=== PATIENT | female | born 1975 | race Caucasian/White ===

== ENCOUNTER 2024-06-09 16:37 | Inpatient (IN) | payer BC, SELFPAY ==
[2024-06-09] VITALS (17 sets, daily range): BP systolic 104–156; BP diastolic 71–93; BMI 37.9
[2024-06-09 03:29] LABS: Urine Albumin Negative (Neg - Trace); Urine Bilirubin 1+ (Negative); Urine Character Clear (Clear); Urine Color Yellow; Urine Glucose Negative (Negative); Urine Ketone Negative (Negative); Urine Leukocyte 1+ (Negative); Urine Nitrite Negative (Negative); Urine Occult Blood 2+ (Negative); Urine Specific Gravity 1.025 (<1.030); Urine Urobilinogen 2+ (Neg - 1+)
[2024-06-09 03:40] LABS: % Basophils 0.7 % (0-2); % Eosinophils 5.4 % (0-6); % Immature Granulocytes 0.2 % (0-0.5); % Lymphocytes 27.9 % (20.5-51.1); % Monocytes 9.5 % (1.7-9.3); % Neutrophils 56.3 % (42.2-75.2); Absolute Eosinophils 0.3 10^3/uL (0-0.7); Absolute Lymphocytes 1.6 10^3/uL (1.2-3.4); Absolute Monocytes 0.5 10^3/uL (0.1-0.6); Absolute Neutrophils 3.1 10^3/uL (1.4-6.5); Hematocrit 39.7 % (37.0-47.0); Hemoglobin 13.5 g/dL (12.0-16.0); Mean Corpuscular Hgb 29.2 pg (27.0-31.0); Mean Corpuscular Volume 85.9 fL (81.0-99.0); Mean Platelet Volume 10.9 fL (7.4-10.4); Nucleated Red Blood Cells % 0 %; Platelet Count 341 10^3/uL (130-400); Red Blood Cell Count 4.62 10^6/uL (4.20-5.40); Red Cell Dist. Width 12.9 % (11.5-14.5); White Blood Cell Count 5.6 10^3/uL (4.8-10.8)
[2024-06-09 03:42] LABS: ALT (SGPT) 483 U/L (0-35); AST (SGOT) 599 U/L (14-36); Albumin 4.1 g/dl (3.5-5.0); Alkaline Phosphatase 162 U/L (38-126); Blood Urea Nitrogen 11 mg/dl (7-17); Calcium 9.6 mg/dl (8.4-10.2); Carbon Dioxide 26 mmol/L (22-30); Chloride 105 mmol/L (98-107); Glucose 109 mg/dl (70-99); Lipase 202 U/L (23-300); Potassium 4.1 mmol/L (3.5-5.1); Sodium 137 mmol/L (135-145); Total Protein 6.9 g/dl (6.3-8.2); eGFR > 60.00
[2024-06-09 04:02] LABS: Urine Bacteria Moderate (Negative); Urine Squamous Cell >30 /LPF (Few)
[2024-06-09] MEDS: NSS 1000 IV ×2 (04:24→17:01)
[2024-06-09] MEDS: ZOFRAN 4 MG IV ×3 (04:25→16:10)
[2024-06-09] MEDS: PROTONIX IV 40 MG IV (04:26)
[2024-06-09] MEDS: DILAUDID 0.5 MG IV ×3 (04:27→10:39)
--- NOTE | 2024-06-09 06:03 | ED.GENMED ---
History of Present Illness
General
Chief Complaint: Abdominal Pain
Source: patient
Exam Limitations: none
Time Seen by Provider: 06/09/24 05:18
Nursing documentation reviewed up to this point in time: agreed with
History of Present Illness
History of Present Illness:
This is a 49-year-old woman with history of well-controlled asthma, presents with 3 to 4-week history of intermittent upper abdominal pain primarily right upper quadrant that seems worse at nighttime, worse after eating fatty meals. Right upper
quadrant pain has been consistent since yesterday afternoon after eating a small piece of sausage and much worse tonight accompanied with nausea and vomiting. She denies fevers or chills. No chest pain or cough no shortness of breath.
She denies risk of , is perimenopausal and was recently started on estrogen/progesterone supplementation.
Patient was in moderate distress initially upon arrival to the ED. Was given IV Dilaudid, IV Zofran, IV Protonix and IV fluids. Pain is now markedly improved and nausea has resolved.
She denies alcohol use. Non-smoker.
Past History
Past History
ED Past Medical History: Asthma
ED Past Surgical History: Tonsilectomy
Social History
Tobacco: Former smoker (quit 10 years ago)
Alcohol: None
Drug: None
Personal:
Living: with family
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
Family History
Family History: Other (Noncontributory)
Phy Exam
Physical Exam
Physical Exam:
GENERAL: 49-year-old woman appears her stated age, awake and alert, pleasant, appears in no acute distress.
EYE: anicteric
NECK: Supple, nontender, no meningismus, no significant adenopathy.
ENT: oral mucosa is moist. No rhinorrhea.
CARDIAC: Regular rate and rhythm. no murmur.
LUNGS: Clear breath sounds bilaterally, no acute respiratory distress, no wheezes/rales/rhonchi
ABDOMEN: Soft, nondistended, moderate tenderness right upper quadrant as well as mild tenderness epigastric region, 9 no r/g, no cvat. normoactive BS.
NEUROLOGICAL: Alert and oriented x3, no focal neuro deficits.
SKIN: Warm and dry, normal color, skin intact. No rash.
MUSCULOSKELETAL: No C/C/E. peripheral pulses are full and equal b/l. No palpable tenderness.
PSYCH: Normal and appropriate interaction.
Course
Orders/Labs/Results
Orders:
Orders
06/09/24 03:08
IV Insert/Care/Rem.- Treatment PRN
06/09/24 03:15
Complete Blood Count/With Diff Urgent
Comprehensive Metabolic Panel Urgent
Lipase Urgent
06/09/24 03:17
Urinalysis Reflex To Culture Urgent
Date Specimen was Collected: 06/09/24
Time Specimen was Collected: 03:08
Urine Microscopic Reflex Cult Urgent
Urine Culture Urgent
ÁNGEL Source: U
Specimen Description:
Date Specimen was Collected: 06/09/24
Time Specimen was Collected: 03:08
06/09/24 04:17
HYDROmorphone [Dilaudid] 0.5 mg .ROUTE .STK-MED ONE
Ondansetron Injectable [Zofran] 4 mg .ROUTE .STK-MED ONE
Pantoprazole [Protonix IV] 40 mg .ROUTE .STK-MED ONE
06/09/24 04:24
0.9% Sodium Chloride 1000 ml [Nss] 1,000 ml IV BOLUS
06/09/24 04:25
Ondansetron Injectable [Zofran] 4 mg IV NOW STA
Pantoprazole [Protonix IV] 40 mg IV NOW STA
06/09/24 04:26
HYDROmorphone [Dilaudid] 0.5 mg IV NOW STA
06/09/24 04:28
US Abdomen Complete/Upper Urgent
Comment:
Reason For Exam: right upper quad pain
Abnormal Lab Results
06/09/24 06/09/24
03:15 03:17
MPV 10.9 H fL
(7.4-10.4)
Monocytes % 9.5 H %
(1.7-9.3)
Glucose 109 H mg/dl
(70-99)
Total Bilirubin 2.0 H mg/dl
(0.2-1.3)
AST 599 H* U/L
(14-36)
ALT 483 H U/L
(0-35)
Alkaline Phosphatase 162 H U/L
(38-126)
Ur Occult Blood Reflex 2+ A
(Negative)
Urine Bilirubin 1+ A
(Negative)
Urine Urobilinogen 2+ A
(Neg - 1+)
Leukocyte Esterase Rfl 1+ A
(Negative)
Urine RBC 3-6 A /HPF
(0-2)
Urine Bacteria (Reflex) Moderate A
(Negative)
06/09/24 03:15
06/09/24 03:15
Vital Signs
Initial and Last Documented VS:
Initial Vital Signs
Temp Pulse Resp BP Pulse Ox
97.6 F 72 20 137/91 99
06/09/24 03:02 06/09/24 03:02 06/09/24 03:02 06/09/24 03:02 06/09/24 03:02
Last Documented Vital Signs
Temp Pulse Resp BP Pulse Ox
97.6 F 72 20 137/91 98
06/09/24 03:02 06/09/24 03:02 06/09/24 03:02 06/09/24 03:02 06/09/24 04:12
MDM/Problems Addressed
Differential Diagnosis Includes:
Significant concern for acute biliary colic/acute cholecystitis. Other consideration is pancreatitis, gastritis. Small bowel obstruction is much less likely.
Labs are remarkable for significantly elevated LFTs in the 400s to near 600 with elevated alkaline phosphatase and total bili of 2.0. Normal lipase. Normal CBC.
Abdominal ultrasound shows gallstones in the gallbladder but no evidence of gallbladder wall thickening and normal common bile duct of 4 mm.
Patient is much more comfortable but continues with tenderness right upper quadrant and with elevated LFTs, gallstones significant turn for acute cholecystitis.
General surgery consulted, case discussed. Evaluated bedside.
Chronic conditions affecting care: Asthma (Well-controlled without recent flare)
*Radiology
Radiology exam reviewed: radiology read reviewed
*Pulse Oximetry
Patient hypoxic: no
*Critical Care Note
Total Time (30-74mins, 75-104mins- exclusive of procedures): Not Applicable
ED Attending Note
-
Portions of this chart may have been created with voice recognition software.� Occasional wrong word or��sound alike� substitutions may have occurred due to the inherent limitations of voice recognition software.
Discharge Plan
Departure
Admit to doctor: Tony
Presentation/result/management discussed w/ accepting MD/DO: General surgery
Discharge Problem:
Acute calculous cholecystitis
Prescriptions:
No Action
albuterol sulfate 90 MCG/PUFF HFA aerosol inhaler
1 puff inhalation PRN PRN (Reason: sob)
fluticasone furoate-vilanterol [Breo Ellipta] 1 EACH blister with device
1 ea inhalation DAILY
Patient Comments:
unsure of strength
ibuprofen 600 MG tablet
600 mg PO Q6H PRN (Reason: discomfort)
Referrals:
Tiffany Dalton CRNP [Family Provider] -
Interventions
Interventions:
*Risk Screen - Suicide Last Done: 06/09/24 03:02
*General Assessment Last Done: 06/09/24 03:02
*Neglect/Abuse Screening Last Done: 06/09/24 03:02
*ED- Fall Risk Assessment Last Done: 06/09/24 03:02
*ED COVID-19 Vaccine History Last Done: 06/09/24 03:02
HV-Kpftee-Suehrfwujw Assessment Last Done: 06/09/24 04:12
Discharge Date and Time
Print Language: PAKISTANI
--- NOTE | 2024-06-09 09:05 | HPS.HSE ---
Addendum entered and electronically signed by Sebastián Jimenez MD 06/09/24 15:48:
I saw and examined the patient.
The Fullerette's note was reviewed and I agree with the note.
Comment: RUQ ttp, pain improving but she is very concerned about eating and having another episode of pain and prefers to stay for CCY with cholangiogram. Risks, benefits, complications and alternatives were discussed in detail including but not
limited to pain, infection, bleeding, injury to intra-abdominal structures. bile duct stones requiring ERCP, conversion to open procedure and she freely signed the consen
Original Note:
Family Physician
-
Family Physician: MAGY Saeed
Chief Complaint
-
RUQ pain
History of Present Illness
49 yo female with a h/o asthma presenting through the ED with RUQ pain with indigestion intermittently over the last 3-4 weeks, usually at night. She initially attributed the discomfort to the new hormone replacement therapy she had started but
notes it did worsen with fatty foods. Last night, she was at a wedding and had some sausage with subsequent onset of more severe RUQ pain with nausea and vomiting. Her symptoms persisted causing her to present through the ED for evaluation. She
denies fevers or chills. She feels sore to the RUQ but feels better after receiving analgesics in the ED.
Medical History
Past Medical History
Past Medical History: Reports Asthma
Past Surgical History: Reports Tonsilectomy and Other (Endoscopy x2 for food impaction)
Social History
Tobacco: Former Smoker
Living: With Family (has 6 children)
Employment: Employed (commercial attorney)
Family History
Family History: Not pertinent
Allergies / Home Medications
Allergies reflects when Allergies were last updated in [facility].
Home Medications with original date entered in [facility]
Allergy/Medication List:
Patient Allergies
Allergy/AdvReac Type Severity Reaction Status Date / Time
pine nut Allergy Unknown Verified 06/09/24 03:01
pseudoephedrine HCl Allergy Unknown Verified 06/09/24 03:01
[From [facility]]
�Medication �Instructions �Recorded �Confirmed �Type
albuterol sulfate 90 mcg/actuation 1 puff inhalation PRN PRN sob 05/10/10 06/09/24 History
aerosol inhaler
fluticasone furoate 100 1 ea inhalation DAILY 11/11/17 06/09/24 History
mcg-vilanterol 25 mcg/dose
inhalation powder (Breo Ellipta)
ibuprofen 600 mg tablet 600 mg PO Q6H PRN discomfort 11/11/17 06/09/24 History
Additionally reports she is on progesterone/estrogen, unknown dosage
Review of Systems
-
History Source: Patient and Family
A 12 point ROS was completed and negative except as noted: Yes
Physical Exam
Vital Signs
Vital Signs
Temp Pulse Resp BP Pulse Ox
97.6 F 72 20 120/78 99
06/09/24 03:02 06/09/24 03:02 06/09/24 03:02 06/09/24 06:19 06/09/24 06:45
Physical Exam
General: Well Developed and Well Nourished
HEENT: Moist mucous membranes
Respiratory: Non Labored Respirations
GI: Soft, Non Distended and Tender (minimal to RUQ)
Skin: Warm and Dry
Neuro: Awake, Alert and AO x 3
Psych: Calm
Laboratory Results
-
06/09/24 03:15
06/09/24 03:15
Laboratory Results
Total Bilirubin 2.0 mg/dl (0.2-1.3) H 06/09/24 03:15
AST 599 U/L (14-36) H* 06/09/24 03:15
ALT 483 U/L (0-35) H 06/09/24 03:15
Alkaline Phosphatase 162 U/L (38-126) H 06/09/24 03:15
Lipase 202 U/L (23-300) 06/09/24 03:15
Data Reviewed
-
Ultrasound: Image Personally Visualized and interpreted, Report Reviewed by me, Discussed with Physician, Discussed with Patient and Discussed with Family
Lab Data: Labs Reviewed by me, Discussed with Physician, Discussed with Patient and Discussed with Family
Impression/Plan
-
IMPRESSION: 49 yo female with h/o asthma presenting with recurrent biliary colic over the past month with more persistent and severe pain last night after a high fat meal with associated nausea. Mildly elevated LFT's, no leukocytosis. AFVSS. US with
cholelithiasis, no evidence of cholecystitis.
PLAN:
NPO for OR today for lap cholecystectomy with IOC
Cefotetan cable television installer to the OR
Analgesics prn
--- NOTE | 2024-06-09 12:30 | PHANOTE ---
06/09/24 med rec tech: patient says that she took 1/4 of one of her mother's THC gummies last night (06/08/24). she does not know the strength.
--- NOTE | 2024-06-09 15:48 | W.IMMPOSTOP ---
Surgical Immed Post Op Note
-
Primary Surgeon: Tony
Assisting: Preet SULLIVAN
Pre-op Diagnosis: Biliary colic
Post-op Diagnosis: Chronic calculous cholecystitis and choledocholithiasis
Procedure Performed: Robot assisted laparoscopic cholecystectomy with cholangiogram
Anesthesia Type: GETA
Specimen / Cultures: Gallbladder
Estimated Blood Loss: 15cc
Complications: None immediate
Operative Findings: Distended gallbladder encased in fat, dilated cystic duct, cholangiogram with good flow into duodenum, opacification of bile ducts, 2-3 filling defects in common duct noted
--- NOTE | 2024-06-09 15:50 | OR.RPT ---
Operative Report
Operative Report
Primary Surgeon: Tony
Assisting: Preet SULLIVAN
Pre-op Diagnosis: Biliary colic
Post-op Diagnosis: Chronic calculous cholecystitis and choledocholithiasis
Procedure Performed: Robot assisted laparoscopic cholecystectomy with cholangiogram
Anesthesia Type: GETA
Specimen / Cultures: Gallbladder
Estimated Blood Loss: 15cc
Complications: None immediate
Operative Findings: Distended gallbladder encased in fat, dilated cystic duct, cholangiogram with good flow into duodenum, opacification of bile ducts, 2-3 filling defects in common duct noted
Date of Surgery:� 06/09/24
Indications: This 49F developed symptomatic cholelithiasis. Lab work showed elevated liver enzymes. Imaging showed no ductal dilation. Laparoscopic cholecystectomy with robotic assist and cholangiogram was elected.
Description of procedure: The patient was placed on the operating table in the supine position. General anesthesia was induced. A time-out was completed verifying correct patient, procedure, site, positioning, and special equipment prior to
beginning this procedure. An orogastric tube was placed. The abdomen was prepped and draped in the usual sterile fashion. A stab incision was made in left upper quadrant and the Veress needle was inserted. Proper position was confirmed by aspiration
and saline meniscus test. The abdomen was insufflated with carbon dioxide to a pressure of 12mmHg. The patient tolerated insufflation well.
A 8mm trocar was then inserted above the umbilicus through the existing hernia defect. The laparoscope was inserted and the abdomen inspected. No injuries from initial trocar placement or Veress needle insertion were noted. Additional 8mm trocars
were then inserted in the following locations: two in the right lower quadrant and to the left of the umbilicus and just above. The abdomen was inspected and no abnormalities were found. Filmy omental adhesions to the gallbladder were taken down
with electrocautery. The table was placed in the reverse Trendelenburg position with the right side up. The gallbladder was encased in fat and had dense adhesions to omentum. The dome of the gallbladder was grasped with an atraumatic grasper and
retracted over the dome of the liver. The fatty attachments were taken down with electrocautery. The infundibulum was then grasped with an atraumatic grasper and retracted toward the right lower quadrant. This maneuver exposed Calot�s triangle. The
peritoneum overlying the gallbladder infundibulum was then incised and the cystic duct and cystic artery identified and circumferentially dissected so that a clear view of the liver was achieved through a window between the cystic duct an cystic
artery. At this time, the only two structures going into the gallbladder were the cystic artery and cystic duct.
A nolberto was made in the cystic duct and a cholangiogram catheter was threaded through the abdominal wall and into the cystic duct and secured with a 2-0 silk tie. A cholangiogram was obtained that showed good flow of contrast into duodenum,
opacification of bile ducts, 2-3 filling defects in common duct. The cholangiogram catheter was removed.
The cystic duct was then doubly clipped and divided. The cystic artery was controlled with bipolar and divided. The gallbladder was then dissected from its peritoneal attachments by electrocautery. The gallbladder was removed using an endoscopic
retrieval bag placed through the umbilical port. The gallbladder was passed off the table as a specimen. The gallbladder fossa was closely inspected. There was no evidence of bleeding from the gallbladder fossa or cystic artery or leakage of the
bile from the cystic duct stump. The fossa was irrigated thoroughly with warm sterile saline. The umbilical trocar site was closed at the fascial level with 2-0 PDS. Secondary trocars were removed under direct vision and noted to be hemostatic. The
abdomen was allowed to collapse. The skin was closed with subcuticular sutures of 4-0 monocryl and topical skin adhesive. The orogastric tube was removed.
The patient tolerated the procedure well and was taken to the postanesthesia care unit in stable condition.
[2024-06-09] MEDS: DEMEROL 12.5 MG IV (16:19)
--- NOTE | 2024-06-09 17:19 | PTCARENOTE ---
Received patient from PACU via bed around 1705 in stable condition. Patient drowsy but arousable. Patient complaining of pain 12/28. Patient not due for any pain medication at this time as she had just received medication in PACU. Ice placed on
abdomen. Explained to patient about gas pains and the importance of ambulating. 5 lap sites to abdomen with surgical adhesive CDI, IMPROVEMENT LEADER. Patient oriented to room. at bedside. Call atkinson in reach.
[2024-06-09] MEDS: DILAUDID 1 MG IV (18:36)
[2024-06-09] MEDS: TORADOL 15 MG IV (20:11)
[2024-06-09] MEDS: ROXICODONE 5 MG PO (21:41)
[2024-06-10] MEDS: ROXICODONE 5 MG PO ×2 (04:50→09:11)
[2024-06-10] MEDS: NORMOSOL-R/PLASMALYTE-A 1000 IV (04:51)
[2024-06-10] MEDS: NSS 1000 IV ×2 (05:00→17:45)
[2024-06-10] MEDS: ProAIR HFA INHALER 1 PUFF INH (05:37)
[2024-06-10 06:57] VITALS: BP 127/70
[2024-06-10 08:32] LABS: % Basophils 0.2 % (0-2); % Eosinophils 0.1 % (0-6); % Immature Granulocytes 0.4 % (0-0.5); % Lymphocytes 9.5 % (20.5-51.1); % Monocytes 5.7 % (1.7-9.3); % Neutrophils 84.1 % (42.2-75.2); Absolute Immature Granulocytes 0.1 10^3/uL (0-0.05); Absolute Lymphocytes 1.3 10^3/uL (1.2-3.4); Absolute Monocytes 0.8 10^3/uL (0.1-0.6); Absolute Neutrophils 11.3 10^3/uL (1.4-6.5); Hematocrit 40.8 % (37.0-47.0); Hemoglobin 13.7 g/dL (12.0-16.0); Mean Corp Hgb Conc. 33.6 g/dL (33.0-37.0); Mean Corpuscular Hgb 29.8 pg (27.0-31.0); Mean Corpuscular Volume 88.7 fL (81.0-99.0); Mean Platelet Volume 10.7 fL (7.4-10.4); Nucleated Red Blood Cells % 0 %; Platelet Count 350 10^3/uL (130-400); Red Cell Dist. Width 13.1 % (11.5-14.5); White Blood Cell Count 13.4 10^3/uL (4.8-10.8)
[2024-06-10] MEDS: TORADOL 15 MG IV (08:37)
[2024-06-10 08:52] LABS: ALT (SGPT) 718 U/L (0-35); AST (SGOT) 313 U/L (14-36); Albumin 4.6 g/dl (3.5-5.0); Alkaline Phosphatase 226 U/L (38-126); Direct Bilirubin 0.6 mg/dl (0.0-0.4); Total Bilirubin 1.4 mg/dl (0.2-1.3); Total Protein 7.2 g/dl (6.3-8.2)
--- NOTE | 2024-06-10 10:34 | W.PN.GS2 ---
Addendum entered and electronically signed by Sebastián Jimenez MD 06/10/24 14:38:
I saw and examined the patient.
The Shipbuilding Draftsperson's note was reviewed and I agree with the note.
Comment: Improved. Still with right shoulder discomfort and abd pain, unclear if pain from incisions or choledocholithiasis. Per GI plan for ERCP tomorrow. CLD for today. NPO@MN
Original Note:
Today's Communication / Plan
-
NPO after MN
Assessment / Plan
-
49 yo female presenting with biliary colic, symptomatic chronic cholecystitis now POD #1 RAL cholecystectomy with IOC demonstrating choledocholithiasis
AFVSS
Mild leukocytosis, likely reactive
Bilirubin trending down. Transaminitis present.
--Diet as tolerated today
--GI consult for ERCP, will make NPO after MN
--Analgesics/antiemetics prn
--SCDS for VTE ppx
Subjective Data
-
Date of Service: June 10, 2024
Patient seen and examined at bedside. Denies n/v. Some pain after eating to the epigastric area. Sore at port sites. Passing flatus.
Objective Data
-
Intake and Output
06/09/24 06/10/24 06/11/24
06:59 06:59 06:59
Intake Total 2079 / 2079
Output Total 750 / 750
Balance 1330 / 1330
Intake:
Oral fluids 1020 / 1020
IV fluids (Total) 1060 / 1060
Normosol 100 / 100
Output:
Urine, Voided 750 / 750
Vital Signs
Temp Pulse Resp BP Pulse Ox
97.4 F 77 16 127/70 98
06/10/24 06:57 06/10/24 06:57 06/10/24 06:57 06/10/24 06:57 06/10/24 06:57
Lab Results
06/10/24 08:20
06/09/24 03:15
Calcium 9.6 mg/dl (8.4-10.2) 06/09/24 03:15
Total Bilirubin 1.4 mg/dl (0.2-1.3) H 06/10/24 08:20
Direct Bilirubin 0.6 mg/dl (0.0-0.4) H 06/10/24 08:20
AST 313 U/L (14-36) H 06/10/24 08:20
ALT 718 U/L (0-35) H* 06/10/24 08:20
Alkaline Phosphatase 226 U/L (38-126) H 06/10/24 08:20
Total Protein 7.2 g/dl (6.3-8.2) 06/10/24 08:20
Albumin 4.6 g/dl (3.5-5.0) 06/10/24 08:20
Physical Exam
-
NAD
ABD soft, expected incisional tenderness, nd
Incisions well approximated with intact glue
[2024-06-10 10:56] VITALS: BP 112/62
[2024-06-10] MEDS: DILAUDID 1 MG IV ×3 (12:33→19:13)
--- NOTE | 2024-06-10 12:59 | CM ---
Initial assessment completed
Pt lives with her and daughter in a 2 story home; 3 [address], 10 steps to 2nd fl
Independent, employed, drives
DME - none
Denies past SNF/HH
Has ride at discharge
PCP - Tiffany Bruner
Pharm - [facility]
Plan - anticipate home no needs
[2024-06-10] MEDS: TORADOL 30 MG IV (13:47)
[2024-06-10] MEDS: TYLENOL 1000 MG PO (13:48)
--- NOTE | 2024-06-10 14:05 | CON.GI ---
Consultation
-
Date/Time Consultation Requested: 06/10/2024
Date/Time Consultation Performed: 06/10/2024
Requesting Provider: Dr. Jimenez
Performing Provider: Dr. Dumont
Reason for Consultation: Choledocholithiasis
Medical History
Chief Complaint / HPI
Chief Complaint: Choledocholithiasis
History of Present Illness:
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
Tuesday night and came to the emergency room. Abdominal ultrasound shows cholelithiasis, LFTs including total bilirubin, AST, ALT and alkaline phosphatase were all elevated. Patient had laparoscopic cholecystectomy and intraoperative cholangiogram
showed possible stones in the bile ducts and GI consult was called in. Total bilirubin is trending down slightly, AST is coming down but ALT did go up to the 700 range and alkaline phosphatase in the 200 range. No prior elevated LFTs.
Currently patient does report some discomfort in the upper abdomen in the post cholecystectomy site. No nausea or vomiting. No heartburn, she does have history of eosinophilic esophagitis and has trouble swallowing solid food on occasion, she was
supposed to be on gluten-free and dairy free diet but has not been compliant lately. Her last upper endoscopy in 2019 did show evidence of eosinophilic esophagitis when she had food impaction, biopsies showed up to 72 eosinophils per high-power
field. Colonoscopy in 2019 showed some mild erythema in the colon but biopsies unremarkable.
No family history of colon cancer.
Past Medical History
Past Medical History: Asthma and Other (Eosinophilic esophagitis)
Past Surgical History: Other (Laparoscopic cholecystectomy)
Social History
Tobacco: Non-Smoker
Alcohol: Occasional
Family History
Family History: Reviewed & Not Pertinent
Allergies / Home Medications
Allergy/AdvReac Type Severity Reaction Status Date / Time
pine nut Allergy Unknown Verified 06/09/24 03:01
pseudoephedrine HCl Allergy Unknown Verified 06/09/24 03:01
[From [facility]]
�Medication �Instructions �Recorded
albuterol sulfate 90 mcg/actuation 1 puff inhalation R PRN PRN PRN sob 05/10/10
aerosol inhaler
estradiol 0.075 mg/24 hr 1 patch transdermal ONCE Hormonal 06/09/24
semiweekly transdermal patch Agent
famotidine 20 mg tablet (Pepcid AC) 20 mg PO DAILYPRN PRN heartburn 06/09/24
fluticasone furoate 100 1 inh inhalation R DAILY 06/09/24
mcg-vilanterol 25 mcg/dose Lung/Breathing Issues
inhalation powder (Breo Ellipta)
ketotifen fumarate 0.025 % (0.035 1 drp BOTH EYES DAILYPRN PRN itchy 06/09/24
%) eye drops eyes
progesterone micronized 100 mg 100 mg PO QHS Hormonal Agent 06/09/24
capsule
Review of Systems
-
All other systems: A 12 pt ROS was Negative except as stated above in HPI
Vital Signs
Temp Pulse Resp BP Pulse Ox
98.1 F 74 16 112/62 100
06/10/24 10:56 06/10/24 10:56 06/10/24 10:56 06/10/24 10:56 06/10/24 10:56
Physical Exam
Exam
Respiratory: Clear
Cardiac: S1/S2 and Regular Rhythm
GI: Tender (Discomfort on palpation in the upper abdomen)
Results
WBC 13.4 10^3/uL (4.8-10.8) H 06/10/24 08:20
Hgb 13.7 g/dL (12.0-16.0) 06/10/24 08:20
Hct 40.8 % (37.0-47.0) 06/10/24 08:20
MCV 88.7 fL (81.0-99.0) 06/10/24 08:20
Plt Count 350 10^3/uL (130-400) 06/10/24 08:20
Absolute Neuts (auto) 11.3 10^3/uL (1.4-6.5) H 06/10/24 08:20
Sodium 137 mmol/L (135-145) 06/09/24 03:15
Potassium 4.1 mmol/L (3.5-5.1) 06/09/24 03:15
Chloride 105 mmol/L (98-107) 06/09/24 03:15
Carbon Dioxide 26 mmol/L (22-30) 06/09/24 03:15
BUN 11 mg/dl (7-17) 06/09/24 03:15
Creatinine 0.7 mg/dL (0.6-1.0) 06/09/24 03:15
Calcium 9.6 mg/dl (8.4-10.2) 06/09/24 03:15
Total Bilirubin 1.4 mg/dl (0.2-1.3) H 06/10/24 08:20
AST 313 U/L (14-36) H 06/10/24 08:20
ALT 718 U/L (0-35) H* 06/10/24 08:20
Alkaline Phosphatase 226 U/L (38-126) H 06/10/24 08:20
Lipase 202 U/L (23-300) 06/09/24 03:15
Diagnostic Image Results:
Prior GI Procedures:
EGD:
Colonoscopy:
Assessment / Plan
-
49-year-old female with history of eosinophilic esophagitis, currently not on PPI or elimination diet, presenting with epigastric, right upper quadrant pain, noted to have acute cholecystitis now status post laparoscopic cholecystectomy with
intraoperative cholangiogram showed stones in the bile duct.
-Choledocholithiasis without any evidence of cholangitis
mild leukocytosis without fevers, elevated LFTs.
Will need ERCP tomorrow
N.p.o past midnight
May need EGD prior to doing the ERCP with history of eosinophilic esophagitis
Monitor LFTs, CBC
-History of eosinophilic esophagitis, currently not compliant with diet or PPI
Needs to follow-up with Dr. Tripp as outpatient
-
-
Thank you for consultation and allowing me to participate in the patient's care. Please call the promotional marketing agent GI physician during the after hours with any questions or concerns.
[2024-06-10 15:15] VITALS: BP 103/64
[2024-06-10] MEDS: SYMBICORT 80/4.5 MCG INHALER 2 PUFF INH (20:24)
[2024-06-10] MEDS: TORADOL IV (21:09)
[2024-06-10] MEDS: TYLENOL PO (21:09)
[2024-06-10] MEDS: NON-FORMULARY ITEM 1 MG PO (22:37)
[2024-06-10 23:00] VITALS: BP 109/64
[2024-06-11] VITALS (8 sets, daily range): BP systolic 103–135; BP diastolic 60–89
[2024-06-11] MEDS: DILAUDID 1 MG IV ×4 (01:22→22:40)
[2024-06-11] MEDS: TYLENOL 1000 MG PO ×3 (01:22→18:23)
[2024-06-11] MEDS: TORADOL IV (01:25)
[2024-06-11] MEDS: NSS 1000 IV ×2 (06:30→22:37)
[2024-06-11] MEDS: SYMBICORT 80/4.5 MCG INHALER 2 PUFF INH ×2 (08:18→19:25)
[2024-06-11] MEDS: TORADOL 30 MG IV (08:21)
[2024-06-11 08:30] LABS: Hematocrit 34.1 % (37.0-47.0); Hemoglobin 11.2 g/dL (12.0-16.0); Mean Corp Hgb Conc. 32.8 g/dL (33.0-37.0); Mean Corpuscular Hgb 29.5 pg (27.0-31.0); Mean Corpuscular Volume 89.7 fL (81.0-99.0); Mean Platelet Volume 11.1 fL (7.4-10.4); Platelet Count 257 10^3/uL (130-400); Red Cell Dist. Width 13.3 % (11.5-14.5); White Blood Cell Count 6.4 10^3/uL (4.8-10.8)
[2024-06-11 09:10] LABS: ALT (SGPT) 413 U/L (0-35); AST (SGOT) 89 U/L (14-36); Albumin 3.1 g/dl (3.5-5.0); Alkaline Phosphatase 165 U/L (38-126); Blood Urea Nitrogen 7 mg/dl (7-17); Calcium 8.6 mg/dl (8.4-10.2); Carbon Dioxide 28 mmol/L (22-30); Chloride 104 mmol/L (98-107); Estimated Creatinine Clearance 110 ml/min; Glucose 88 mg/dl (70-99); Potassium 3.9 mmol/L (3.5-5.1); Sodium 135 mmol/L (135-145); Total Bilirubin 0.8 mg/dl (0.2-1.3); Total Protein 5.4 g/dl (6.3-8.2); eGFR > 60.00
--- NOTE | 2024-06-11 10:01 | W.PN.GS2 ---
Today's Communication / Plan
-
ERCP
Assessment / Plan
-
49 yo female presenting with biliary colic, symptomatic chronic cholecystitis now POD #2 RAL cholecystectomy with IOC demonstrating choledocholithiasis
AFVSS
Mild leukocytosis, likely reactive
Bilirubin normalized. Transaminitis trending down.
--NPO for procedure, diet as per GI post procedure
--GI following for ERCP
--Analgesics/antiemetics prn
--SCDS for VTE ppx
Subjective Data
-
Date of Service: June 11, 2024
Patient seen and examined at bedside with Dr. Philip. Limon n/v. Some epigastric pain persists.
Objective Data
-
Intake and Output
06/10/24 06/11/24 06/12/24
06:59 06:59 06:59
Intake Total 2080 / 2080 2750 / 2750 240 / 240
Output Total 750 / 750 120 / 120
Balance 1330 / 1330 2630 / 2630 240 / 240
Intake:
Oral fluids 1020 / 1020 1800 / 1800 240 / 240
IV fluids (Total) 1060 / 1060 950 / 950
Normosol 100 / 100
Output:
Urine, Voided 750 / 750 120 / 120
Other:
Number of approximated MODERATE 4
amounts of urine
Vital Signs
Temp Pulse Resp BP Pulse Ox
98.2 F 72 16 117/68 100
06/11/24 07:10 06/11/24 08:21 06/11/24 08:21 06/11/24 07:10 06/11/24 08:21
Lab Results
06/11/24 07:50
06/11/24 07:50
Calcium 8.6 mg/dl (8.4-10.2) 06/11/24 07:50
Total Bilirubin 0.8 mg/dl (0.2-1.3) 06/11/24 07:50
Direct Bilirubin 0.6 mg/dl (0.0-0.4) H 06/10/24 08:20
AST 89 U/L (14-36) H 06/11/24 07:50
ALT 413 U/L (0-35) H 06/11/24 07:50
Alkaline Phosphatase 165 U/L (38-126) H 06/11/24 07:50
Total Protein 5.4 g/dl (6.3-8.2) L D 06/11/24 07:50
Albumin 3.1 g/dl (3.5-5.0) L D 06/11/24 07:50
Physical Exam
-
NAD
ABD soft, expected incisional tenderness, nd
Incisions well approximated with intact glue
--- NOTE | 2024-06-11 11:40 | CM ---
Chart reviewed
For ERCP today
CM will follow for d/c needs
Plan - anticipate home no needs
[2024-06-11] MEDS: ZOFRAN 4 MG IV (16:17)
[2024-06-11] MEDS: TYLENOL PO (17:19)
[2024-06-11] MEDS: ROXICODONE 5 MG PO (21:00)
[2024-06-11] MEDS: NON-FORMULARY ITEM 100 MG PO (21:01)
[2024-06-11] MEDS: PEPCID 20 MG PO (22:52)
[2024-06-12] MEDS: TYLENOL 1000 MG PO ×4 (00:29→21:00)
[2024-06-12] MEDS: DILAUDID 1 MG IV ×7 (01:49→21:46)
[2024-06-12 07:10] VITALS: BP 138/80
[2024-06-12 07:15] LABS: Hematocrit 34.2 % (37.0-47.0); Hemoglobin 11.4 g/dL (12.0-16.0); Mean Corp Hgb Conc. 33.3 g/dL (33.0-37.0); Mean Corpuscular Hgb 30.1 pg (27.0-31.0); Mean Corpuscular Volume 90.2 fL (81.0-99.0); Mean Platelet Volume 11.2 fL (7.4-10.4); Platelet Count 266 10^3/uL (130-400); Red Blood Cell Count 3.79 10^6/uL (4.20-5.40); Red Cell Dist. Width 13.3 % (11.5-14.5)
--- NOTE | 2024-06-12 07:21 | W.PN.GS2 ---
Today's Communication / Plan
-
-- Clears as tolerated
-- Pain control: Tylenol, Toradol, Oxycodone, Dilaudid IV PRN
-- GI following
-- Home meds
-- DVT: SCDS and Lovenox
-- Dispo pending, awaiting pain improved, labs, and dietary tolerance
Assessment / Plan
-
49 yo female presenting with biliary colic, symptomatic chronic cholecystitis
POD #3 RAL cholecystectomy with IOC demonstrating choledocholithiasis
PPD#1 ERCP with stone extraction, sphincterotomy and stent
AFVSS
Repeat labs pending
Epigastric and back pain post ERCP raises concern for possible post ERCP pancreatitis. Repeat labs pending. Maintain on clears with hydration and pain control.
-- Clears as tolerated
-- Pain control: Tylenol, Toradol, Oxycodone, Dilaudid IV PRN
-- GI following
-- Home meds
-- DVT: SCDS and Lovenox
-- GI: Home Famotidine
-- Dispo pending, awaiting pain improved, labs, and dietary tolerance
Subjective Data
-
Date of Service: June 12, 2024
Reports pain in the epigastrium and back prior to pre-ERCP. Mild nausea overnight, denies any current. No episodes of vomiting. No fevers. Passing minimal flatus, no BMs.
Objective Data
-
Intake and Output
06/11/24 06/12/24 06/13/24
06:59 06:59 06:59
Intake Total 2750 / 2750 2210 / 2210
Output Total 120 / 120
Balance 2630 / 2630 221 / 2210
Intake:
Oral fluids 1800 / 1800 720 / 720
IV fluids (Total) 950 / 950 1490 / 1490
lactacted ringers 50 / 50
Output:
Urine, Voided 120 / 120
Other:
Number of approximated MODERATE 4 3
amounts of urine
Number of unmeasured liquid
stools
Rectum 4
Vital Signs
Temp Pulse Resp BP Pulse Ox
98.2 F 64 17 129/85 96
06/11/24 23:05 06/11/24 23:05 06/11/24 23:05 06/11/24 23:05 06/12/24 02:01
Lab Results
06/12/24 05:54
Calcium 8.6 mg/dl (8.4-10.2) 06/11/24 07:50
Total Bilirubin 0.8 mg/dl (0.2-1.3) 06/11/24 07:50
Direct Bilirubin 0.6 mg/dl (0.0-0.4) H 06/10/24 08:20
AST 89 U/L (14-36) H 06/11/24 07:50
ALT 413 U/L (0-35) H 06/11/24 07:50
Alkaline Phosphatase 165 U/L (38-126) H 06/11/24 07:50
Total Protein 5.4 g/dl (6.3-8.2) L D 06/11/24 07:50
Albumin 3.1 g/dl (3.5-5.0) L D 06/11/24 07:50
Physical Exam
-
Gen: NAD
Abd: soft, obese, tender in epigastrium and mid abdomen, mild distension, non-peritoneal, incisions c/d/i - no erythema or drainage, mild ecchymosis
Patient has a montgomery catheter: No
Patient has a central line: No
[2024-06-12 07:53] LABS: ALT (SGPT) 322 U/L (0-35); AST (SGOT) 57 U/L (14-36); Albumin 3.2 g/dl (3.5-5.0); Alkaline Phosphatase 183 U/L (38-126); Blood Urea Nitrogen 7 mg/dl (7-17); Calcium 8.6 mg/dl (8.4-10.2); Carbon Dioxide 27 mmol/L (22-30); Chloride 106 mmol/L (98-107); Estimated Creatinine Clearance > 125 ml/min; Glucose 75 mg/dl (70-99); Potassium 3.9 mmol/L (3.5-5.1); Sodium 140 mmol/L (135-145); Total Bilirubin 0.7 mg/dl (0.2-1.3); Total Protein 5.5 g/dl (6.3-8.2); eGFR > 60.00
[2024-06-12 07:59] LABS: Lipase 2485 U/L (23-300)
[2024-06-12] MEDS: NON-FORMULARY ITEM 1 UNIT TOPICAL (08:01)
[2024-06-12] MEDS: TORADOL 15 MG IV (08:02)
[2024-06-12] MEDS: SYMBICORT 80/4.5 MCG INHALER 2 PUFF INH ×2 (08:11→19:43)
--- NOTE | 2024-06-12 11:29 | CM ---
Chart reviewed; met with pt
Remains on IVF's
Pain management
Plan - anticipate home no needs when medically ready
[2024-06-12] MEDS: NSS 1000 IV ×2 (11:35→22:00)
--- NOTE | 2024-06-12 12:02 | W.PN.GI.CBS2 ---
Today's Communication / Plan
-
bowel rest, pain control
Assessment / Plan
-
49-year-old female with history of eosinophilic esophagitis, currently not on PPI or elimination diet, presenting with epigastric, right upper quadrant pain, noted to have acute cholecystitis now status post laparoscopic cholecystectomy with
intraoperative cholangiogram showed stones in the bile duct s/p ERCP 06/11 now with post-ERCP pancreatitis.
-Choledocholithiasis without any evidence of cholangitis s/p ERCP
LFTs trending down
Encouraged IS
-Post-ERCP pancreatitis
NPO with sips of clears
Can advance to clear liquid when pain improves
D/w Drs. iGlmore/Tacho/Eliz will change toradol to tramadol with sphincterotomy
On dilaudid prn, pain control
mild leukocytosis without fevers, elevated LFTs.
-History of eosinophilic esophagitis, currently not compliant with diet or PPI
Needs to follow-up with Dr. Tripp as outpatient
Subjective
Subjective
Date of Service: June 12, 2024
Epigastric pain radiating to back today
Tried liquids last night had pain
Objective
Data Reviewed
Laboratory Data:
Laboratory Results
06/12/24 05:54
06/12/24 05:54
Laboratory Results
Total Bilirubin 0.7 mg/dl (0.2-1.3) 06/12/24 05:54
AST 57 U/L (14-36) H 06/12/24 05:54
ALT 322 U/L (0-35) H 06/12/24 05:54
Alkaline Phosphatase 183 U/L (38-126) H 06/12/24 05:54
Lipase 2485 U/L (23-300) H* 06/12/24 05:54
Vital Signs and I&O:
Vital Signs
Temp Pulse Resp BP Pulse Ox
98.1 F 70 18 138/80 100
06/12/24 07:10 06/12/24 07:10 06/12/24 07:10 06/12/24 07:10 06/12/24 07:10
I&O
06/11/24 06/12/24 06/13/24
06:59 06:59 06:59
Intake Total 2750 / 2750 2210 / 2210
Output Total 120 / 120
Balance 2630 / 2630 2210 / 2210
Physical Exam
Physical Exam
GI: Non Distended and Tender
[2024-06-12 15:17] VITALS: BP 132/80
[2024-06-12] MEDS: LOVENOX 40 MG SC (17:32)
[2024-06-12] MEDS: ULTRAM 50 MG PO (17:39)
[2024-06-12] MEDS: NON-FORMULARY ITEM 100 MG PO (21:15)
[2024-06-12 23:00] VITALS: BP 134/76
[2024-06-13] MEDS: DILAUDID 1 MG IV ×3 (00:42→11:10)
[2024-06-13] MEDS: TYLENOL 1000 MG PO ×4 (00:42→20:25)
[2024-06-13] MEDS: ROXICODONE 5 MG PO ×4 (03:38→22:06)
[2024-06-13] MEDS: NSS IV (04:34)
[2024-06-13] MEDS: SYMBICORT 80/4.5 MCG INHALER 2 PUFF INH ×2 (07:22→20:23)
[2024-06-13 08:00] VITALS: BP 130/83
[2024-06-13] MEDS: NSS 1000 IV ×2 (08:08→18:16)
[2024-06-13 08:57] LABS: Hematocrit 33.7 % (37.0-47.0); Hemoglobin 11.5 g/dL (12.0-16.0); Mean Corp Hgb Conc. 34.1 g/dL (33.0-37.0); Mean Corpuscular Hgb 30.1 pg (27.0-31.0); Mean Corpuscular Volume 88.2 fL (81.0-99.0); Mean Platelet Volume 11.1 fL (7.4-10.4); Platelet Count 236 10^3/uL (130-400); Red Blood Cell Count 3.82 10^6/uL (4.20-5.40); Red Cell Dist. Width 13.2 % (11.5-14.5); White Blood Cell Count 12.9 10^3/uL (4.8-10.8)
[2024-06-13 09:35] LABS: ALT (SGPT) 227 U/L (0-35); AST (SGOT) 34 U/L (14-36); Albumin 3.6 g/dl (3.5-5.0); Alkaline Phosphatase 162 U/L (38-126); Blood Urea Nitrogen 4 mg/dl (7-17); Calcium 8.6 mg/dl (8.4-10.2); Carbon Dioxide 23 mmol/L (22-30); Chloride 102 mmol/L (98-107); Direct Bilirubin 0.4 mg/dl (0.0-0.4); Estimated Creatinine Clearance > 125 ml/min; Glucose 74 mg/dl (70-99); Potassium 3.9 mmol/L (3.5-5.1); Sodium 134 mmol/L (135-145); Total Bilirubin 1.1 mg/dl (0.2-1.3); Total Protein 5.8 g/dl (6.3-8.2); eGFR > 60.00
--- NOTE | 2024-06-13 10:27 | CM ---
Patient seen at bedside
cont on IV, pain mgmt
PLAN: anticipate home no needs when medically ready
to transport
--- NOTE | 2024-06-13 11:23 | W.PN.GS2 ---
Today's Communication / Plan
-
SHERLY pain meds
clears
IVF
DVT ppx
Assessment / Plan
-
49 yo female presenting with biliary colic, symptomatic chronic cholecystitis
POD #3 RAL cholecystectomy with IOC demonstrating choledocholithiasis
PPD#1 ERCP with stone extraction, sphincterotomy and stent now with post-ERCP pancreatitis
AFVSS, remains ttp at epigastrium, LFTs improving
-- Clears as tolerated
-- Pain control: Tylenol, Toradol, Oxycodone, now SHERLY; Dilaudid IV PRN
-- GI following
-- Home meds
-- DVT: SCDS and Lovenox
-- GI: Home Famotidine
-- Dispo pending, awaiting pain improved, labs, and dietary tolerance
Subjective Data
-
Date of Service: June 13, 2024
AFVSS, abd pain and nausea slightly improved, frustrated with pain med regimen, ambulating, voiding
Objective Data
-
Intake and Output
06/12/24 06/13/24 06/14/24
06:59 06:59 06:59
Intake Total 2210 / 2210 2160 / 2160
Balance 2210 / 2210 2160 / 2160
Intake:
Oral fluids 720 / 720 960 / 960
IV fluids (Total) 1490 / 1490 1200 / 1200
lactacted ringers 50 / 50
Other:
Number of approximated MODERATE 3 2
amounts of urine
Number of unmeasured liquid
stools
Rectum 4
Vital Signs
Temp Pulse Resp BP Pulse Ox
98.2 F 81 16 130/83 95
06/13/24 08:00 06/13/24 08:00 06/13/24 08:00 06/13/24 08:00 06/13/24 08:00
Lab Results
06/13/24 08:12
06/13/24 08:12
Calcium 8.6 mg/dl (8.4-10.2) 06/13/24 08:12
Total Bilirubin 1.1 mg/dl (0.2-1.3) 06/13/24 08:12
Direct Bilirubin 0.4 mg/dl (0.0-0.4) 06/13/24 08:12
AST 34 U/L (14-36) 06/13/24 08:12
ALT 227 U/L (0-35) H 06/13/24 08:12
Alkaline Phosphatase 162 U/L (38-126) H 06/13/24 08:12
Total Protein 5.8 g/dl (6.3-8.2) L 06/13/24 08:12
Albumin 3.6 g/dl (3.5-5.0) 06/13/24 08:12
Physical Exam
-
Gen: NAD
Abd: soft, mod ttp top epigastrium, incisions cdi
Patient has a montgomery catheter: No
Patient has a central line: No
[2024-06-13] MEDS: ULTRAM 100 MG PO ×2 (11:49→17:25)
--- NOTE | 2024-06-13 15:27 | W.PN.GI.CBS2 ---
Today's Communication / Plan
-
advanced to clears; pain control
Assessment / Plan
-
49-year-old female with history of eosinophilic esophagitis, currently not on PPI or elimination diet, presenting with epigastric, right upper quadrant pain, noted to have acute cholecystitis now status post laparoscopic cholecystectomy with
intraoperative cholangiogram showed stones in the bile duct s/p ERCP 06/11 now with post-ERCP pancreatitis.
-Choledocholithiasis without any evidence of cholangitis s/p ERCP
LFTs trending down
Encouraged IS
-Post-ERCP pancreatitis
Clear liquid diet
Pain control
-History of eosinophilic esophagitis, currently not compliant with diet or PPI
Needs to follow-up with Dr. Tripp as outpatient
Subjective
Subjective
Date of Service: June 13, 2024
still with pain but improving
started clears today tolerated
Objective
Data Reviewed
Laboratory Data:
Laboratory Results
06/13/24 08:12
06/13/24 08:12
Laboratory Results
Total Bilirubin 1.1 mg/dl (0.2-1.3) 06/13/24 08:12
AST 34 U/L (14-36) 06/13/24 08:12
ALT 227 U/L (0-35) H 06/13/24 08:12
Alkaline Phosphatase 162 U/L (38-126) H 06/13/24 08:12
Lipase 2485 U/L (23-300) H* 06/12/24 05:54
Vital Signs and I&O:
Vital Signs
Temp Pulse Resp BP Pulse Ox
98.2 F 81 16 130/83 95
06/13/24 08:00 06/13/24 08:00 06/13/24 08:00 06/13/24 08:00 06/13/24 08:00
I&O
06/12/24 06/13/24 06/14/24
06:59 06:59 06:59
Intake Total 2209
Balance 2209
Physical Exam
Physical Exam
GI: Non Distended and Tender
[2024-06-13 15:35] VITALS: BP 135/82
[2024-06-13] MEDS: LOVENOX 40 MG SC (17:24)
[2024-06-13] MEDS: NON-FORMULARY ITEM 100 MG PO (22:06)
[2024-06-13 23:25] VITALS: BP 124/79
[2024-06-14] MEDS: ULTRAM 100 MG PO ×2 (00:05→06:00)
[2024-06-14] MEDS: TYLENOL 1000 MG PO ×4 (00:41→20:35)
[2024-06-14] MEDS: ROXICODONE 5 MG PO ×4 (04:00→22:06)
[2024-06-14] MEDS: NSS 1000 IV (04:00)
[2024-06-14 07:26] VITALS: BP 134/83
[2024-06-14 08:14] LABS: Blood Urea Nitrogen 4 mg/dl (7-17); Calcium 8.5 mg/dl (8.4-10.2); Carbon Dioxide 28 mmol/L (22-30); Chloride 103 mmol/L (98-107); Estimated Creatinine Clearance > 125 ml/min; Glucose 72 mg/dl (70-99); Potassium 3.8 mmol/L (3.5-5.1); Sodium 136 mmol/L (135-145); eGFR > 60.00
[2024-06-14] MEDS: SYMBICORT 80/4.5 MCG INHALER 2 PUFF INH ×2 (08:31→19:56)
--- NOTE | 2024-06-14 08:44 | W.PN.GS2 ---
Today's Communication / Plan
-
-- LFD
-- Pain control: Tylenol, Toradol, Oxycodone, now SHERLY; Dilaudid IV PRN
-- Dispo pending, awaiting pain improved and dietary tolerance
Assessment / Plan
-
49 yo female presenting with biliary colic, symptomatic chronic cholecystitis
POD#5 RAL cholecystectomy with IOC demonstrating choledocholithiasis
PPD#3 ERCP with stone extraction, sphincterotomy and stent now with post-ERCP pancreatitis
AFVSS
Repeat BMP with correction of hyponatremia and normal renal function
Recovering well from a general surgery perspective. Post ERCP pancreatitis slowly improving. Plan for dietary advancement and optimization of pain control prior to hopeful discharge today.
-- LFD
-- Pain control: Tylenol, Toradol, Oxycodone, now SHERLY; Dilaudid IV PRN
-- GI following
-- Home meds
-- DVT: SCDS and Lovenox
-- GI: Home Famotidine
-- Dispo pending, awaiting pain improved and dietary tolerance
Subjective Data
-
Date of Service: June 14, 2024
Reports pain is improved, though not complete resolved, no use of IV pain medications since yesterday afternoon. No nausea or vomiting. Voiding. Afebrile. Eager for discharge.
Objective Data
-
Intake and Output
06/13/24 06/14/24 06/15/24
06:59 06:59 06:59
Intake Total 2160 / 2160 3660 / 3660
Balance 2160 / 2160 3660 / 3660
Intake:
Oral fluids 960 / 960 1260 / 1260
IV fluids (Total) 1200 / 1200 2400 / 2400
Other:
Number of approximated MODERATE 2 3
amounts of urine
Vital Signs
Temp Pulse Resp BP Pulse Ox
97.4 F 79 18 134/83 96
06/14/24 07:26 06/14/24 07:26 06/14/24 07:26 06/14/24 07:26 06/14/24 07:26
Lab Results
06/13/24 08:12
06/14/24 07:19
Calcium 8.5 mg/dl (8.4-10.2) 06/14/24 07:19
Total Bilirubin 1.1 mg/dl (0.2-1.3) 06/13/24 08:12
Direct Bilirubin 0.4 mg/dl (0.0-0.4) 06/13/24 08:12
AST 34 U/L (14-36) 06/13/24 08:12
ALT 227 U/L (0-35) H 06/13/24 08:12
Alkaline Phosphatase 162 U/L (38-126) H 06/13/24 08:12
Total Protein 5.8 g/dl (6.3-8.2) L 06/13/24 08:12
Albumin 3.6 g/dl (3.5-5.0) 06/13/24 08:12
Physical Exam
-
Gen: NAD
Abd: soft, mild tenderness (improved), ND, non-peritoneal, incisions c/d/i - no erythema or drainage, mild ecchymosis
Patient has a montgomery catheter: No
Patient has a central line: No
[2024-06-14] MEDS: TORADOL 15 MG IV ×2 (08:56→15:20)
--- NOTE | 2024-06-14 12:51 | CM ---
Chart reviewed; met with pt
Poss d/c today/tomorrow
Tolerating diet thus far
Has ride at d/c
Plan - anticipate home no needs
--- NOTE | 2024-06-14 13:01 | W.PN.GI.CBS2 ---
Today's Communication / Plan
-
adv diet, dc planning
Assessment / Plan
-
49-year-old female with history of eosinophilic esophagitis, currently not on PPI or elimination diet, presenting with epigastric, right upper quadrant pain, noted to have acute cholecystitis now status post laparoscopic cholecystectomy with
intraoperative cholangiogram showed stones in the bile duct s/p ERCP 06/11 now with post-ERCP pancreatitis.
-Choledocholithiasis without any evidence of cholangitis s/p ERCP
LFTs trending down
Encouraged IS
-Post-ERCP pancreatitis
Low fat diet
Pain control per surgery
I sent msg to office to set up removal of stent
-History of eosinophilic esophagitis, currently not compliant with diet or PPI
Needs to follow-up with Dr. Tripp as outpatient I sent msg to office to set up
I d/w Drs. Wellington and Mando
Subjective
Subjective
Date of Service: June 14, 2024
Pain improving
Objective
Data Reviewed
Laboratory Data:
Laboratory Results
06/13/24 08:12
06/14/24 07:19
Laboratory Results
Total Bilirubin 1.1 mg/dl (0.2-1.3) 06/13/24 08:12
AST 34 U/L (14-36) 06/13/24 08:12
ALT 227 U/L (0-35) H 06/13/24 08:12
Alkaline Phosphatase 162 U/L (38-126) H 06/13/24 08:12
Lipase 2485 U/L (23-300) H* 06/12/24 05:54
Vital Signs and I&O:
Vital Signs
Temp Pulse Resp BP Pulse Ox
97.4 F 79 18 134/83 96
06/14/24 07:26 06/14/24 07:26 06/14/24 07:26 06/14/24 07:06/14/24 07:26
I&O
06/13/24 06/14/24 06/15/24
06:59 06:59 06:59
Intake Total 0 / 0 3660 / 3660
Balance 0 / 2160 3660 / 3660
Physical Exam
Physical Exam
GI: Non Distended and Non Tender
[2024-06-14 15:15] VITALS: BP 135/90
[2024-06-14] MEDS: LOVENOX 40 MG SC (19:01)
[2024-06-14 19:09] VITALS: BP 140/81
[2024-06-14] MEDS: DILAUDID 1 MG IV (20:41)
[2024-06-14] MEDS: NON-FORMULARY ITEM 100 MG PO (22:06)
[2024-06-14 23:47] VITALS: BP 136/91
[2024-06-15] MEDS: TYLENOL 1000 MG PO ×3 (00:03→12:56)
[2024-06-15] MEDS: ROXICODONE 5 MG PO ×3 (04:03→17:00)
--- NOTE | 2024-06-15 05:58 | W.PN.GI.CBS2 ---
Today's Communication / Plan
-
Please see assessment and plan for details.
Assessment / Plan
-
1. CBD stone: Status post ERCP with sphincterotomy, stone removal and stent, with post ERCP pancreatitis, overall much improved clinically. She still having some discomfort which is expected, though tolerating diet, abdominal exam is benign. We
discussed continued dietary modifications with small, frequent, low-fat meals. Follow-up has been set up with Dr. Tripp and for stent removal. She is okay to ME from GI standpoint if no other issues this morning.
Subjective
Subjective
Date of Service: June 15, 2024
Patient doing okay, still some discomfort of tolerated diet. No vomiting, fever, did move her bowels yesterday.
Objective
Data Reviewed
Laboratory Data:
Laboratory Results
06/13/24 08:12
06/14/24 07:19
Laboratory Results
Total Bilirubin 1.1 mg/dl (0.2-1.3) 06/13/24 08:12
AST 34 U/L (14-36) 06/13/24 08:12
ALT 227 U/L (0-35) H 06/13/24 08:12
Alkaline Phosphatase 162 U/L (38-126) H 06/13/24 08:12
Lipase 2485 U/L (23-300) H* 06/12/24 05:54
Vital Signs and I&O:
Vital Signs
Temp Pulse Resp BP Pulse Ox
98.2 F 86 16 136/91 97
06/14/24 23:47 06/14/24 23:47 06/14/24 23:47 06/14/24 23:47 06/14/24 23:47
I&O
06/13/24 06/14/24 06/15/24
06:59 06:59 06:59
Intake Total 2160 / 2160 3660 / 3660 1440 / 1440
Balance 2160 / 2160 3660 / 3660 1440 / 1440
Physical Exam
Physical Exam
General: NAD
Abdomen: normal bowel sounds, soft, minimal epigastric tenderness, no masses or bruits, no ascites
[2024-06-15 07:05] VITALS: BP 147/86
[2024-06-15] MEDS: SYMBICORT 80/4.5 MCG INHALER 2 PUFF INH (08:38)
[2024-06-15] MEDS: TORADOL 15 MG IV ×2 (09:16→15:00)
[2024-06-15] MEDS: NON-FORMULARY ITEM 1 UNIT TOPICAL (09:18)
--- NOTE | 2024-06-15 09:27 | W.PN.GS2 ---
Today's Communication / Plan
-
dispo planning
Assessment / Plan
-
49 yo female presenting with biliary colic, symptomatic chronic cholecystitis
POD#6 RAL cholecystectomy with IOC demonstrating choledocholithiasis
PPD#4 ERCP with stone extraction, sphincterotomy and stent now with post-ERCP pancreatitis
AFVSS
Recovering well from a general surgery perspective. Post ERCP pancreatitis slowly improving.
-- LFD
-- Pain control: Tylenol, Toradol, Oxycodone, now SHERLY; Dilaudid IV PRN
-- GI following
-- Home meds
-- DVT: SCDS and Lovenox
-- GI: Home Famotidine
-- OK to shower
-- Dispo pending, awaiting pain improved and dietary tolerance
Subjective Data
-
Date of Service: June 15, 2024
Patient seen and examined at bedside with Dr. Bashir. Notes pain yesterday with meals, needed dilaudid last noc after dinner. Denies n/v. Incisional soreness minimal.
Objective Data
-
Intake and Output
06/14/24 06/15/24 06/16/24
06:59 06:59 06:59
Intake Total 3660 / 3660 1440 / 1440
Balance 3660 / 3660 1440 / 1440
Intake:
Oral fluids 1260 / 1260 1440 / 1440
IV fluids (Total) 2400 / 2400
Other:
Number of approximated MODERATE 3 3
amounts of urine
Vital Signs
Temp Pulse Resp BP Pulse Ox
97.5 F 76 16 147/86 97
06/15/24 07:05 06/15/24 07:05 06/15/24 07:05 06/15/24 07:05 06/15/24 07:05
Lab Results
06/13/24 08:12
06/14/24 07:19
Calcium 8.5 mg/dl (8.4-10.2) 06/14/24 07:19
Total Bilirubin 1.1 mg/dl (0.2-1.3) 06/13/24 08:12
Direct Bilirubin 0.4 mg/dl (0.0-0.4) 06/13/24 08:12
AST 34 U/L (14-36) 06/13/24 08:12
ALT 227 U/L (0-35) H 06/13/24 08:12
Alkaline Phosphatase 162 U/L (38-126) H 06/13/24 08:12
Total Protein 5.8 g/dl (6.3-8.2) L 06/13/24 08:12
Albumin 3.6 g/dl (3.5-5.0) 06/13/24 08:12
Physical Exam
-
Gen: NAD
Abd: soft, mild tenderness (improved), ND, non-peritoneal, incisions c/d/i - no erythema or drainage, mild ecchymosis
--- NOTE | 2024-06-15 14:00 | W.DCSUMMARY ---
Discharge Summary
Discharge Data
Date of Admission: 06/09/24
Date of Discharge: 06/15/24
-
Pending Results: No
Hospital Course
Ms Demarco is a 49 yo female that presented with recurrent symptoms of biliary colic. She was taken to the OR for robotic assisted laparoscopic cholecystectomy with chronic cholecystitis noted. Her intraoperative cholangiogram demonstrated
choledocholithiasis and gastroenterology was consulted to assist with management. She had an ERCP preformed with sphincterotomy and removal of stones with biliary stent placement. She, unfortunately, developed pancreatitis status post ERCP. Once
pain was improved and diet was able to be advanced and well tolerated, she was discharged to home with outpatient follow up arranged for stent removal in approximately 6 weeks with primary operator with surgical follow up with her primary surgeon.
Discharge Plan
-
Patient Disposition: Home (Routine Discharge)
Discharge Diagnosis/Procedures: chronic cholecystitis with choledocholithiasis status post laparoscopic cholecystectomy and ERCP
Condition: Good
Diet: As tolerated
Additional Diets: If you have loose stools after surgery, avoid oily greasy foods and high fat dairy
Activity: No strenuous activity
Additional Activity: Do not lift over 15 lbs for the next 2-3 weeks
[address]riving Restrictions: Wait until off narcotics/comfortable twisting
Bathing Restrictions: OK to Shower
Wound Care: Allow the glue to flake off your incisions on it's own over the next 2-3 weeks. Ok to shower and was gently with soap and water but do not soak in a tub or pool for 2 weeks
Activity Restrictions/Additional Instructions:
Call your surgeon if you develop worsening pain, fevers >100.5 or nausea with vomiting
Referrals:
Tiffany Dalton CRNP [Family Provider] -
Bebeto Gilmore MD [Active] - in four to six weeks (for biliary stent removal)
Sebastián Jimenez MD [Active] - in two to three weeks
Prescriptions:
New
acetaminophen [acetaminophen] 325 mg tablet
650 mg PO Q4HPRN PRN (Reason: mild pain) Qty: 1 0RF
ibuprofen 200 mg tablet
400 - 600 mg PO Q6HPRN PRN (Reason: moderate pain) Qty: 1 0RF
oxycodone 5 mg tablet
5 mg PO Q4HPRN PRN (Reason: breakthrough/severe pain) Qty: 20 0RF
ondansetron 4 mg tablet,disintegrating
4 mg PO Q8HPRN PRN (Reason: nausea/vomiting) Qty: 10 0RF
Continued
albuterol sulfate 90 MCG/PUFF HFA aerosol inhaler
1 puff inhalation R PRN PRN PRN (Reason: sob)
estradiol 0.075 mg/24 hr Patch Semiweekly
1 patch TRANSDERMAL ONCE
Rx Instructions:
applies on Mondays and Fridays
progesterone micronized 100 mg Capsule
100 mg PO QHS
fluticasone furoate-vilanterol [Breo Ellipta] 100-25 mcg/dose Blister With Device
1 inh INHALATION R DAILY
Patient Comments:
has not taken in ~2wks because she needs a new refrill
ketotifen fumarate 0.025 % (0.035 %) Drops
1 drp BOTH EYES DAILYPRN PRN (Reason: itchy eyes)
famotidine [Pepcid AC] 20 mg Tablet
20 mg PO DAILYPRN PRN (Reason: heartburn)
Discharge Orders:
Discharge Patient (As Directed); Ordered 06/15/24
Ordered By: Maricel Oviedo
Discharge Date and Time
Print Language: NICARAGUAN
--- NOTE | 2024-06-15 14:26 | CM ---
Pt for d/c today
Has ride home with family member
Plan - home no needs
[2024-06-15 15:03] VITALS: BP 134/87
== END 2024-06-15 17:20 | disposition home or self-care (01) | DRG 417 ==
LOC: 2 SOUTH 16:37
PROVIDERS: Internal Medicine Gastroenterology; Radiology Diagnostic Radiology; Registered Nurse; ADMITTING PHYSICIAN Surgery; CONSULT PHYSICIAN Internal Medicine Gastroenterology; EMERGENCY PHYSICIAN Emergency Medicine; FAMILY PHYSICIAN Nurse Practitioner Adult Health
PROC: 0FT44ZZ Resection of Gallbladder, Percutaneous Endoscopic Approach (ICD-10-PCS; 2024-06-09)
PROC: BF10YZZ Fluoroscopy of Bile Ducts using Other Contrast (ICD-10-PCS; 2024-06-09)
PROC: 0F798DZ Dilation of Common Bile Duct with Intraluminal Device, Via Natural or Artificial Opening Endoscopic (ICD-10-PCS; 2024-06-11)
PROC: 0FC98ZZ Extirpation of Matter from Common Bile Duct, Via Natural or Artificial Opening Endoscopic (ICD-10-PCS; 2024-06-11)
DX: K80.44 Calculus of bile duct with chronic cholecystitis without obstruction (principal); K85.80 Other acute pancreatitis without necrosis or infection; K91.89 Other postprocedural complications and disorders of digestive system; J45.909 Unspecified asthma, uncomplicated; Z87.891 Personal history of nicotine dependence; Z79.51 Long term (current) use of inhaled steroids; Z79.890 Hormone replacement therapy; Z91.199 Patient's noncompliance with other medical treatment and regimen due to unspecified reason; Z87.19 Personal history of other diseases of the digestive system; Y83.8 Other surgical procedures as the cause of abnormal reaction of the patient, or of later complication, without mention of misadventure at the time of the procedure
CPT/HCPCS: 88304; 74300; 74330; 76000; 76700; 80048; 80053; 80076; 81003; 81015; 83690; 85025; 85027; 87086; 94640; 96361; 96374; 96375; 96376; 99285; A4300; C1769; C2625

== ENCOUNTER → 2024-07-19 07:53 | Outpatient (REF) | payer BC, SELFPAY | LOC: WDC 07:53 | PROVIDERS: ATTENDING PHYSICIAN Nurse Practitioner Adult Health; FAMILY PHYSICIAN Nurse Practitioner Adult Health | DX: R92.8 Other abnormal and inconclusive findings on diagnostic imaging of breast (principal) | CPT/HCPCS: 76642 ==

== ENCOUNTER 2024-08-07 06:11 | Day surgery (SDC) | payer BC, SELFPAY ==
[2024-08-07 08:56] VITALS: BMI 38.0
[2024-08-07 08:57] VITALS: BP 122/81
[2024-08-07 09:06] VITALS: BMI 38.0
[2024-08-07 11:42] VITALS: BP 126/76
[2024-08-07 11:45] VITALS: BP 119/86
[2024-08-07 12:04] VITALS: BP 120/77
== END 2024-08-07 12:18 | disposition home or self-care (01) ==
LOC: GI 06:11
PROVIDERS: ATTENDING PHYSICIAN Internal Medicine Gastroenterology
DX: Z46.59 Encounter for fitting and adjustment of other gastrointestinal appliance and device (principal)
CPT/HCPCS: 43247

== ENCOUNTER → 2024-08-23 18:21 | Outpatient (REF) | payer BC, SELFPAY | LOC: WDC 18:21 | PROVIDERS: ATTENDING PHYSICIAN Nurse Practitioner Adult Health; FAMILY PHYSICIAN Nurse Practitioner Adult Health | DX: Z12.31 Encounter for screening mammogram for malignant neoplasm of breast (principal) | CPT/HCPCS: 77063; 77067 ==